=== PATIENT | male | born 1935 | race Caucasian/White ===

== ENCOUNTER → 2019-06-24 18:26 | Outpatient (CLI) | payer MEDICARE, SELFPAY ==
[2019-06-24 18:49] LABS: Basophils % 0.4 % (0.1-2.0); Eosinophils # 0.1 K/mm3 (0.0-0.4); Eosinophils % 1.3 % (0.1-12.0); Hematocrit 35.7 % (42.0-52.0); Hemoglobin 11.4 g/dL (14.1-18.0); Lymphocytes # 1.1 K/mm3 (0.7-4.5); Lymphocytes % 11.6 % (10-50); Mean Corpuscular Hemoglobin 27.8 pg (27.0-31.2); Mean Platelet Volume 8.5 fl (7.4-10.4); Monocytes # 0.7 K/mm3 (0.1-1.0); Monocytes % 7.4 % (1.7-9.3); Neutrophils # 7.8 K/mm3 (1.8-7.8); Neutrophils % 79.4 % (37.0-80.0); Platelet Count 322 K/mm3 (142-424); Red Cell Distribution Width 15.2 % (11.5-17.5); White Blood Count 9.8 K/mm3 (4.8-10.8)
== END ==
PROVIDERS: Visit Provider Internal Medicine Adolescent Medicine
DX: K92.1 Melena (principal)
CPT/HCPCS: 85025

== ENCOUNTER → 2019-08-16 17:38 | Outpatient (CLI) | payer MEDICARE, SELFPAY ==
[2019-08-16 17:44] LABS: Microscopic, Urine URINE MICROSCOPIC (MICROSCOPIC)
[2019-08-16 17:53] LABS: Appearance,Urine CLEAR (Clear); Bilirubin,Urine Negative (Negative); Blood, Urine TRACE-I (Negative); Color,Urine YELLOW (Yellow); Glucose,Urine (UA) Negative (Negative); Ketones,Urine Negative (Negative); Leukocyte Esterase,Urine 1+ (Negative); Nitrate,Urine Negative (Negative); Protein,Urine 1+ (Negative); Urobilinogen,Urine 0.2 EU/dl (0.2)
[2019-08-16 19:03] LABS: Bacteria,Urine Trace /lpf; RBC,Urine Occasional #/hpf (0-3); Squamous Epithelial Cell,Urine Occasional #/hpf (0-5); WBC,Urine 20-50 #/hpf (0-3)
== END ==
PROVIDERS: Visit Provider Internal Medicine Adolescent Medicine
DX: N39.0 Urinary tract infection, site not specified (principal)
CPT/HCPCS: 81001; 87086

== ENCOUNTER → 2019-09-11 14:26 | Outpatient (CLI) | payer MEDICARE, BC, SELFPAY ==
--- NOTE | 2019-09-11 14:36 | CT_ITS ---
PROCEDURE: CT CERVICAL SPINE WO CON CLINICAL INDICATION: NECK PAIN COMPARISON: CT CERVICAL SPINE WO CON from 06/24/2019 TECHNIQUE: Axial images obtained with sagittal and coronal reformats. All CT scans at the facility use one or more dose reduction, viz: automated exposure control, ma/kV adjustment per patient size (including targeted exams where dose is matched to indication, i.e. head), or iterative reconstruction technique. Axial spiral CT scanning performed of the cervical spine beginning at the base of the skull and continuing to the upper T-spine. 3-D multiplanar reconstruction with 3-D manipulation of volumetric data set in image rendering was completed by the radiologist and/or technologist with the supervision of the radiologist on independent workstation. FINDINGS: No fracture is evident. Normal prevertebral soft tissues. Apices of lungs are clear. A small non-specific right pleural effusion is noted. Multilevel degenerative disc and facet disease are seen throughout the spine. There is approximately 3 millimeters anterior subluxation of C7 on T1. At C2-3 right facet hypertrophy is noted without significant foraminal stenosis. At C3-4 there is marginal osteophyte with bilateral uncinate process hypertrophy and left facet hypertrophy with mild central spinal canal stenosis and left foraminal stenosis. At C4-5 there is a large osteophyte and bilateral uncinate process hypertrophy and left facet hypertrophy with my old bilateral foraminal stenoses. C5-6 there is marginal osteophyte with bilateral foraminal stenosis right greater than left. At C6-7 there is marginal osteophyte and hypertrophic facet disease with uncinate process hypertrophy with bilateral foraminal stenosis right greater than left. IMPRESSION: Multilevel degenerative disc and facet disease as described with mild central canal and foraminal stenoses without acute bone pathology. Non-specific right pleural effusion. Dictated by: Mitchel Adler 09/11/2019 15:13 Electronically signed by Mitchel Adler in [facility] 09/11/2019 15:13
== END ==
PROVIDERS: PCP Emergency Medicine; Visit Provider Internal Medicine Adolescent Medicine
DX: M54.2 Cervicalgia (principal)
CPT/HCPCS: 72125